=== PATIENT | male | born 1995 | race American Indian/Alaskan Native ===

== ENCOUNTER 2019-12-02 18:31 | Emergency (ER) | payer SELFPAY ==
[2019-12-02] MEDS ORDERED: HALOPERIDOL LACTATE 5 MG/1 ML INJ IM STA (19:22)
[2019-12-02] MEDS ORDERED: PANTOPRAZOLE 40 MG INJ IV ONE (19:23)
[2019-12-02] MEDS ORDERED: SODIUM CHLORIDE 0.9% 1000 ML 1,000 ML IV ONE ×3 (19:23→21:10)
[2019-12-02] MEDS ORDERED: FAMOTIDINE 20 MG/2 ML INJ IV ONE (19:23)
--- NOTE | 2019-12-02 19:27 | Emergency Department Report ---
ED General Adult HPI - General Chief complaint: Abdominal Pain Stated complaint: ABD PAIN Time Seen by Provider: 12/02/19 19:13 Source: patient, family, EMS (EMS records not available at time of chart dictation.), RN notes reviewed Mode of arrival: Stretcher Limitations: No Limitations - History of Present Illness Initial comments: During the entire history and physical examination, I am cae engineer and escorted by nurse Amee Botello The patient is a 24-year-old gentleman who is currently visiting from [facility]. He reports that he has a history of possible Brando fundoplication, and then reversal of Brando fundoplication, performed at [facility]. He reports his initial surgery was performed on January 21, and his reversal was performed on May. He presents to the ER with an exacerbation of chronic abdominal pain, and nausea and vomiting. He is driving down in a car, he reports for about 36 hours, and at around 11:00 today, developed diffuse abdominal Cramping, most prominent in the left upper quadrant, radiates to the chest, with nausea and vomiting, close to many times to count." He reports that this is similar to prior episodes of nausea and vomiting. He reports that IV Benadryl typically works for him, and he reports that promethazine, and Reglan/Zofran are not as effective. He took 6 hot showers today, which did not really help his symptoms, he reports that in the past, occasionally hot showers assist with his symptoms. He reports that he does consume medical marijuana, which is prescribed by his surgeon at [facility]. -: Gradual Location: chest, abdomen Radiation: other Quality: aching Consistency: constant Improves with: none Worsens with: none - Related Data Previous Rx's Medication Instructions Recorded Last Taken Type Metoclopramide [Reglan] 10 mg PO Q6HR PRN #30 tab 12/03/19 Unknown Rx Pantoprazole [Protonix TAB] 20 mg PO BID #28 tablet. 12/03/19 Unknown Rx Promethazine [Phenergan SUPPOS] 50 mg ME Q6H PRN #20 supp.rect 12/03/19 Unknown Rx Allergies Allergy/AdvReac Type Severity Reaction Status Date / Time No Known Allergies Allergy Unverified 12/02/19 19:32 ED Review of Systems ROS: Stated complaint: ABD PAIN Other details as noted in HPI Constitutional: malaise Eyes: denies: eye discharge ENT: denies: congestion Respiratory: denies: shortness of breath Cardiovascular: chest pain. denies: syncope Gastrointestinal: nausea, vomiting. denies: hematemesis, melena, hematochezia Genitourinary: denies: dysuria Musculoskeletal: denies: back pain Skin: denies: lesions Neurological: weakness Psychiatric: anxiety Hematological/Lymphatic: denies: easy bleeding ED Past Medical Hx - Past Medical History Previous Medical History?: Yes - Surgical History Past Surgical History?: Yes Additional Surgical History: abd surgery - Social History Smoking Status: Never Smoker Substance Use Type: Marijuana - Medications Home Medications: Home Medications Medication Instructions Recorded Confirmed Last Taken Type Metoclopramide [Reglan] 10 mg PO Q6HR PRN #30 tab 12/03/19 Unknown Rx Pantoprazole [Protonix TAB] 20 mg PO BID #28 tablet.dr 12/03/19 Unknown Rx Promethazine [Phenergan SUPPOS] 50 mg ME Q6H PRN #20 supp.rect 12/03/19 Unknown Rx ED Physical Exam - General Limitations: No Limitations General appearance: alert, anxious, in distress - Head Head exam: Present: atraumatic, normocephalic - Eye Eye exam: Present: normal appearance, EOMI. Absent: nystagmus - ENT ENT exam: Present: normal exam, normal orophraynx, mucous membranes moist, normal external ear exam - Neck Neck exam: Present: normal inspection, full ROM. Absent: tenderness, meningismus - Respiratory Respiratory exam: Present: normal lung sounds bilaterally. Absent: respiratory distress - Cardiovascular Cardiovascular Exam: Present: regular rate, normal rhythm, normal heart sounds. Absent: bradycardia, tachycardia, irregular rhythm, systolic murmur, diastolic murmur, rubs, gallop - GI/Abdominal GI/Abdominal exam: Present: soft. Absent: distended, tenderness, guarding, martell ound, rigid, pulsatile mass - Rectal Rectal exam: Present: deferred - Extremities Exam Extremities exam: Present: normal inspection, full ROM, other (2+ pulses noted in the bilateral upper and lower extremities. The pelvis is stable. There is no long bony tenderness. The muscular compartments are soft. There is no re dness, pus, streaking or erythema.). Absent: pedal edema, joint swelling, calf tenderness - Back Exam Back exam: Present: normal inspection, full ROM. Absent: tenderness, CVA tenderness (R), CVA tenderness (L), paraspinal tenderness, vertebral tenderness - Neurological Exam Neurological exam: Present: alert, other (there is no facial droop. The tongue is midline. Extraocular movements are intact bilaterally. Speaking in full sentences. Hearing is grossly intact. 5 out of 5 strength bilateral upper and lower extremities. Sensation is intact to light touch bilateral upper and lower extremities.). Absent: motor sensory deficit - Psychiatric Psychiatric exam: Present: anxious - Skin Skin exam: Present: warm, dry, intact, normal color. Absent: rash ED Course Vital Signs 12/02/19 12/02/19 12/02/19 19:10 21:12 23:52 Temperature 98.2 F 98.2 F 98.5 F Pulse Rate 95 H 108 H 95 H Respiratory 19 16 16 Rate Blood Pressure 132/75 Blood Pressure 132/73 96/46 111/51 [Left] O2 Sat by Pulse 98 100 Oximetry - Reevaluation(s) Reevaluation #1: 12/02/19 20:03 Differential diagnosis, including but not limited to: GERD, gastritis, hiatal hernia, obstruction, pulmonary embolism, complication from Brando fundoplication, cannabinoid hyperemesis syndrome Assessment and plan: 24-year-old gentleman who is clinically sober at this time, but smells very strongly of marijuana, with a report of diffuse abdominal pain that moves to the chest, nausea and vomiting. We suspect cannabinoid hyperemesis syndrome. However, given his complex surgical history, given that we do not have access to his old medical records, given that he endorses a recent trip in the car from [place], given that he endorses abdominal pain that radiates to the chest, we will obtain CT angiogram of the chest to exclude surgical disease and pulmonary embolism, and CT scan of the abdomen pelvis to assess for obstructive disease. He will be treated haloperidol for presumed nausea and vomiting secondary to cannabinoid hyperemesis syndrome, topical caspacin. At the moment, I will withhold IV Benadryl secondary to its euphoria inducing properties. Discussed this plan of care with the patient, who is amenable to initial therapies. CT scan of the chest, abdomen pelvis, EKG, laboratory studies pending at this time. Reevaluation #2: 12/02/19 21:[address] scan, and then changed his mind. This contributed to delay in disposition. Currently, the patient is sleeping with no active vomiting. Heart rate 103 bpm. IV fluids infusing. CT scan pending at this time. 12/02/19 21:11 Reevaluation #3: 12/02/19 21:41 Patient feeling improved. No active vomiting. However, heart rate now quite rapid, 140s, 150s. Additional IV fluids, IV Benadryl, Ativan ordered. Change of plans at 21:44. Heart rate now 84 bpm. Benadryl and Ativan canceled. CT scan pending. 12/02/19 21:44 Reevaluation #4: 12/02/19 22:34 Repeat EKG unchanged from prior. Tachycardia resolved. Patient resting comfortably in stretcher, and in no distress. No active vomiting is noted. Reevaluation #5: 12/03/19 00:[address] scan of the chest negative for acute disease. CT scan of abdomen pelvis negative for acute disease. Urinalysis not consistent with infectious pathology. Patient resting comfortably at this time. Highly suspect cannabinoid hyperemesis syndrome, with resultant GERD, gastritis, esophageal irritation. The patient is clinically sober at this time and exhibits decision-making capacity. He can be discharged with nausea medication, nonnarcotic pain medication, he is counseled to discontinue cannabis consumption, he'll need to follow up with outpatient primary care, GI and/or cardiology. - Consultations Consultation #1: 12/03/19 00:29 Sleeping comfortably in stretcher, no active vomiting, tachycardia resolved, does not appear to be in any significant distress at this time. ED Medical Decision Making - Lab Data Result diagrams: 12/02/19 19:35 12/02/19 19:35 Vital Signs 12/02/19 19:10 Temperature 98.2 F Pulse Rate 95 H Respiratory 19 Rate Blood Pressure 132/75 Blood Pressure 132/73 [Left] O2 Sat by Pulse 98 Oximetry Lab Results 12/02/19 12/02/19 12/02/19 Range/Units 19:35 19:35 19:35 WBC 14.4 H (4.5-11.0) K/mm3 RBC 4.55 (3.65-5.03) M/mm3 Hgb 14.7 (11.8-15.2) gm/dl Hct 42.2 (35.5-45.6) % MCV 93 (84-94) fl MCH 32 (28-32) pg MCHC 35 H (32-34) % RDW 13.1 L (13.2-15.2) % Plt Count 278 (140-440) K/mm3 PT 13.6 (12.2-14.9) Sec. INR 1.03 (0.87-1.13) Lipase 15 (13-60) units/L Lab Results 12/02/19 12/02/19 12/02/19 Range/Units 19:35 19:35 19:35 WBC 14.4 H (4.5-11.0) K/mm3 RBC 4.55 (3.65-5.03) M/mm3 Hgb 14.7 (11.8-15.2) gm/dl Hct 42.2 (35.5-45.6) % MCV 93 (84-94) fl MCH 32 (28-32) pg MCHC 35 H (32-34) % RDW 13.1 L (13.2-15.2) % Plt Count 278 (140-440) K/mm3 PT 13.6 (12.2-14.9) Sec. INR 1.03 (0.87-1.13) Sodium 140 (137-145) mmol/L Potassium 3.8 (3.6-5.0) mmol/L Chloride 103.4 (98-107) mmol/L Carbon Dioxide 18 L (22-30) mmol/L Anion Gap 22 mmol/L BUN 17 (9-20) mg/dL Creatinine 0.8 (0.8-1.5) mg/dL Estimated GFR > 60 ml/min BUN/Creatinine Ratio 21 % Glucose 153 H (75-100) mg/dL Calcium 9.8 (8.4-10.2) mg/dL Magnesium 1.80 (1.7-2.3) mg/dL Total Bilirubin 0.70 (0.1-1.2) mg/dL AST 21 (5-40) units/L ALT 16 (7-56) units/L Alkaline Phosphatase 88 (35-129) units/L Total Creatine Kinase 185 H (55-170) units/L Troponin T < 0.010 (0.00-0.029) ng/mL Total Protein 8.3 H (6.3-8.2) g/dL Albumin 4.8 (3.9-5) g/dL Albumin/Globulin Ratio 1.4 % Lipase (13-60) units/L 12/02/19 Range/Units 19:35 WBC (4.5-11.0) K/mm3 RBC (3.65-5.03) M/mm3 Hgb (11.8-15.2) gm/dl Hct (35.5-45.6) % MCV (84-94) fl MCH (28-32) pg MCHC (32-34) % RDW (13.2-15.2) % Plt Count (140-440) K/mm3 PT (12.2-14.9) Sec. INR (0.87-1.13) Sodium (137-145) mmol/L Potassium (3.6-5.0) mmol/L Chloride (98-107) mmol/L Carbon Dioxide (22-30) mmol/L Anion Gap mmol/L BUN (9-20) mg/dL Creatinine (0.8-1.5) mg/dL Estimated GFR ml/min BUN/Creatinine Ratio % Glucose (75-100) mg/dL Calcium (8.4-10.2) mg/dL Magnesium (1.7-2.3) mg/dL Total Bilirubin (0.1-1.2) mg/dL AST (5-40) units/L ALT (7-56) units/L Alkaline Phosphatase (35-129) units/L Total Creatine Kinase (55-170) units/L Troponin T (0.00-0.029) ng/mL Total Protein (6.3-8.2) g/dL Albumin (3.9-5) g/dL Albumin/Globulin Ratio % Lipase 15 (13-60) units/L - EKG Data -: EKG Interpreted by Ma EKG shows normal: sinus rhythm Rate: normal - EKG Data When compared to previous EKG there are: previous EKG unavailable 12/02/19 21:44 There is no prior EKG available for comparison. The EKG shows a sinus rhythm, within normal axis, QTC is 452 ms, there is high left ventricular voltage, this EKG is not consistent with STEMI There is no prior for comparison at this time. - Radiology Data Radiology results: report reviewed, image reviewed Print Report Referring Physician: VALENTINO ANAND Patient Name: UMAIR FLOWERS Date of : 1995 Sex: Male Report Date: 2019-12-02 Report Status: Finalized Findings [facility] [address] [place] [address] XRay Report Signed Patient: UMAIR FLOWERS MR#: [id number] : 1995 Acct:[id number] Age/Sex: 24 / M ADM Date: 12/02/19 Loc: ED Attending Dr: Ordering Physician: VALENTINO ANAND MD Date of Service: 12/02/19 Procedure(s): XR chest 1V ap Accession Number(s): [id number] cc: VALENTINO ANAND MD Fluoro Time In Minutes: CHEST 1 VIEW INDICATION / CLINICAL INFORMATION: cp n/v. COMPARISON: None available. FINDINGS: SUPPORT DEVICES: None. HEART / MEDIASTINUM: No significant abnormality. LUNGS / PLEURA: No significant pulmonary or pleural abnormality. No pneumothorax. ADDITIONAL FINDINGS: No significant additional findings. IMPRESSION: 1. No significant change Signer Name: Delfino Cobb MD Signed: 12/02/2019 8:16 PM Workstation Name: [id number] Transcribed By: GERMANIA Dictated By: Delfino Cobb MD Electronically Authenticated By: Delfino Cobb MD Signed Date/Time: 12/02/192015 DD/ 15 TD/TT: Critical care attestation.: If time is entered above; I have spent that time in minutes in the direct care of this critically ill patient, excluding procedure time. ED Disposition Clinical Impression: History of chest pain, Abdominal pain, Nausea and vomiting Disposition: -01 TO HOME OR SELFCARE Is pt being admited?: No Does the pt Need Aspirin: No Condition: Stable Additional Instructions: Avoid consumption of Motrin, ibuprofen, Naprosyn, Aleve, heavy and/or spicy foods. Avoid/minimize consumption of alcohol. Highly suspect that patient experiencing cannabinoid hyperemesis syndrome, therefore, recommend avoidance of consumption and exposure to marijuana, and marijuana containing products. Take the pain medication, nausea medication as needed and directed. Recommend follow-up with an outpatient primary care doctor, trim mounter, or electronic plotting system operator within the next 5 days. Please retu rn to the emergency room right away with projectile vomiting, change in mental status, confusion, inability to tolerate liquid feeds, new, worsened or different symptoms not present on the initial emergency room evaluation. Prescriptions: Promethazine [Phenergan SUPPOS] 50 mg ME Q6H PRN #20 supp.rect PRN Reason: Nausea Pantoprazole [Protonix TAB] 20 mg PO BID #28 tablet. Metoclopramide [Reglan] 10 mg PO Q6HR PRN #30 tab PRN Reason: Nausea Referrals: [facility] [Provider Group] - 3-5 Days [facility] [Provider Group] - 3-5 Days [facility] [Provider Group] - 3-5 Days
[2019-12-02 19:45] LABS: Hematocrit 42.2 % (35.5-45.6); Hemoglobin 14.7 gm/dl (11.8-15.2); Mean Corpuscular HGB Conc 35 % (32-34); Mean Corpuscular Volume 93 fl (84-94); Platelet Count 278 K/mm3 (140-440); Red Blood Count 4.55 M/mm3 (3.65-5.03); Red Cell Distribution Width 13.1 % (13.2-15.2)
[2019-12-02 19:56] LABS: INR 1.03 (0.87-1.13)
[2019-12-02 20:11] LABS: Alanine Aminotransferase 16 units/L (7-56); Albumin 4.8 g/dL (3.9-5); BUN/Creatinine Ratio 21; Blood Urea Nitrogen 17 mg/dL (9-20); Calcium 9.8 mg/dL (8.4-10.2); Hemolysis Index 11
--- NOTE | 2019-12-02 20:20 | XRay Report ---
CHEST 1 VIEW INDICATION / CLINICAL INFORMATION: cp n/v. COMPARISON: None available. FINDINGS: SUPPORT DEVICES: None. HEART / MEDIASTINUM: No significant abnormality. LUNGS / PLEURA: No significant pulmonary or pleural abnormality. No pneumothorax. ADDITIONAL FINDINGS: No significant additional findings. IMPRESSION: 1. No significant change Signer Name: Delfino Cobb MD Signed: 12/02/2019 8:16 PM Workstation Name: [id number]
[2019-12-02] MEDS ORDERED: LORazepam 2 MG/ML VIAL IV STA ×2 (21:10→21:40)
[2019-12-02] MEDS: CAPSAICIN 0.075% CREAM 60 GM TP STA ×2 (21:20→21:22)
[2019-12-02] MEDS ORDERED: diphenhydrAMINE 50 MG/ML VIAL IV ONE (21:40)
[2019-12-02 22:50] LABS: Bilirubin,Urine NEG (Negative); Blood,Urine NEG (Negative); Color,Urine Yellow (Yellow); Mucus,Urine 3+ /HPF; Protein,Urine <15 mg/dL mg/dL (Negative); Urobilinogen,Urine < 2.0 mg/dL (<2.0)
[2019-12-02] MEDS ORDERED: LORazepam 2 MG/ML VIAL ONE (22:59)
[2019-12-02] MEDS ORDERED: LORazepam 2 MG/ML VIAL IV ONE (23:01)
--- NOTE | 2019-12-02 23:39 | Cat Scan Report ---
CTA CHEST WITH IV CONTRAST INDICATION: abd pain rad to chest, road trip, n/n. TECHNIQUE: Axial CT images were obtained through the chest after injection of IV contrast. 3 plane MIP reconstru ctions were produced. All CT scans at this location are performed using CT dose reduction for ALARA b y means of automated exposure control. COMPARISON: None available. FINDINGS: Pulmonary Arteries: No pulmonary emboli. Thoracic Aorta: No acute abnormality. Heart: Normal. Lungs: No acute air space or interstitial disease. Pleura: No pleural effusion. No pneumothorax. Lymph Nodes: No significant adenopathy. Additional Findings: None. Skeletal Structures: No significant osseous abnormality. IMPRESSION: 1. No CT evidence for pulmonary embolism. 2. No acute findings. CT ABDOMEN AND PELVIS WITH IV CONTRAST INDICATION: abd pain rad to chest, road trip, n/n. COMPARISON: None available. TECHNIQUE: All CT scans at this facility use dose modulation, automated exposure control, iterative reconstructi on or weight based dosing, when appropriate, to reduce radiation dose to as low as reasonably achieva ble. FINDINGS: Skeletal System: No acute abnormality. ABDOMEN: Liver: There is a punctate cyst in the superior left hepatic lobe. The liver is otherwise unremarkabl e. Gallbladder: No significant abnormality. Bile Ducts: No significant abnormality. Pancreas: No significant abnormality. Spleen: No significant abnormality. Adrenals: No significant abnormality. Right Kidney: There is a single punctate nonobstructing calyceal stone. Right kidney is otherwise unr emarkable. Left Kidney: No significant abnormality. Upper GI tract: No significant abnormality. Lymph Nodes: No significant adenopathy. Aorta: No significant abnormality. Additional Findings: No significant abnormality. PELVIS: Colon: No acute abnormality. Diverticulosis is noted. Urinary Bladder and Distal Ureters: No significant abnormality. Appendix: No significant abnormality. Lymph Nodes: No significant adenopathy. Additional Findings: None. IMPRESSION: 1. No acute process in the abdomen or pelvis. 2. Incidental findings, as above. Signer Name: Teofilo Salter MD Signed: 12/02/2019 11:34 PM Workstation Name: [id number]
[2019-12-03 03:08] VITALS: BP 101/58
== END 2019-12-03 01:50 | disposition home or self-care (01) ==
LOC: ED 18:31
DX: R10.84 Generalized abdominal pain (principal); R11.2 Nausea with vomiting, unspecified; F12.10 Cannabis abuse, uncomplicated; Z87.898 Personal history of other specified conditions; Z79.899 Other long term (current) drug therapy
CPT/HCPCS: 36415; 71045; 71275; 74177; 80053; 81001; 82550; 83690; 83735; 84484; 85027; 85610; 93005; 93010; 96361; 96372; 96374; 96375; 99285; C9113; J1630; J2060; J7030; Q9967